=== PATIENT | male | born 1960 | race Caucasian/White ===

== ENCOUNTER 2024-03-31 12:11 | Outpatient (REF) | payer OTHER, SELFPAY ==
[2024-03-31 13:07] LABS: INR 2.53; Prothrombin Time 24.5 sec (9.0-11.6)
== END 2024-03-31 12:12 | disposition home or self-care (01) ==
LOC: LAB 12:11
PROVIDERS: PCP Internal Medicine; Visit Provider Internal Medicine
DX: I48.91 Unspecified atrial fibrillation (principal)
CPT/HCPCS: 36415; 85610